=== PATIENT | female | born 1990 | race American Indian/Alaskan Native ===

== ENCOUNTER 2016-06-28 09:56 | Emergency (ER) | payer OTHER ==
[2016-06-28 10:16] VITALS: TEMP 97.7
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
[2016-06-28 11:29] LABS: RBC URINE 9 /hpf (0-3); URINE BACTERIA RARE (<OCC); URINE BILIRUBIN NEGATIVE (NEGATIVE); URINE BLOOD 3+ (NEGATIVE); URINE COLOR Yellow (YELLOW); URINE GLUCOSE (UA) NORMAL (Normal); URINE KETONE NEGATIVE (NEGATIVE); URINE LEUKOCYTE ESTERASE NEG Leu/uL (Negative); URINE PROTEIN 1+ mg/dL (NEGATIVE); URINE UROBILINOGEN NORMAL mg/dL (0.2-1.0); WBC URINE 4 /hpf (0-5)
[2016-06-28] MEDS ORDERED: cefTRIAXone (Rocephin) 250 mg Inj IM STA (12:14)
[2016-06-28 12:41] VITALS: BP 124/72; PULSE 85; RESP 18; O2SAT 98
== END 2016-06-28 12:43 | disposition home or self-care (01) ==
LOC: C.ER 09:56
DX: Z04.41 Encounter for examination and observation following alleged adult rape (principal)
CPT/HCPCS: 81001; 84703; 96372; 99285; J0696

== ENCOUNTER 2017-02-18 11:24 | Emergency (ER) | payer MEDICAID ==
[2017-02-18 11:47] VITALS: BMI 24.6
[2017-02-18 11:53] VITALS: RESP 17; O2SAT 100
--- NOTE | 2017-02-18 13:34 | C.PDOC ---
History Of Present Illness 26 y/o female presents to ED with complaints of cramping abdominal pain for 4 days worse at night. Patient is currently 10 weeks and reports pain radiates to lower back. Patient reports normal bowel movements and denies fever, chills, nausea, vomiting, vaginal bleeding, dysuria or any other complaints at this time. LMP 11/27/16 Time Seen by Provider: 02/18/17 13:24 Chief Complaint (Nursing): Abdominal Pain History Per: Patient History/Exam Limitations: no limitations Onset/Duration Of Symptoms: Days Current Symptoms Are (Timing): Still Present Location Of Pain/Discomfort: Suprapubic Past Medical History Reviewed: Historical Data, Nursing Documentation, Vital Signs Vital Signs: Last Vital Signs Temp 98 F 02/18/17 15:06 Pulse 90 02/18/17 15:06 Resp 17 02/18/17 15:06 BP 111/72 02/18/17 15:06 Pulse Ox 100 02/18/17 15:51 - Medical History PMH: No Chronic Diseases Surgical History: No Surg Hx Family History: States: No Known Family Hx - Social History Hx Alcohol Use: No (Former) Hx Substance Use: No - Immunization History Hx Tetanus Toxoid Vaccination: No Hx Influenza Vaccination: No Hx Pneumococcal Vaccination: No Review Of Systems Constitutional: Negative for: Fever, Chills Gastrointestinal: Positive for: Abdominal Pain. Negative for: Nausea, Vomiting Genitourinary: Negative for: Dysuria, Vaginal Bleeding Musculoskeletal: Positive for: Back Pain Skin: Negative for: Rash Physical Exam - Physical Exam Appears: Non-toxic, No Acute Distress Skin: Normal Color, Warm, Dry, No Rash Head: Atraumatic, Normacephalic Eye(s): bilateral: Normal Inspection Oral Mucosa: Moist Neck: Normal ROM, Supple Cardiovascular: Rhythm Regular Respiratory: Normal Breath Sounds, No Accessory Muscle Use, No Rales, No Rhonchi , No Wheezing Gastrointestinal/Abdominal: No Tenderness, No Guarding, No Rebound, Other ( Gravid abdomen) Extremity: Capillary Refill (<2 seconds) Extremity: Bilateral: Atraumatic, Normal ROM Neurological/Psych: Oriented x3 ED Course And Treatment - Laboratory Results Result Diagrams: 02/18/17 15:20 02/18/17 15:20 O2 Sat by Pulse Oximetry: 100 (RA) Pulse Ox Interpretation: Normal - CT Scan/US OB 1st Trimester Other Rad Studies (CT/US): Read By Radiologist, Radiology Report Reviewed CT/US Interpretation: PROCEDURE: OB Pelvic Ultrasound. HISTORY: patient with cramping pain. COMPARISON: None available. FINDINGS: UTERUS: There is a twin Live intrauterine gestation. [place]-rump length of fetus A is 1.07 cm, equivalent to 7 weeks 1 day. The heart rate is 137 beats per minute. The crown-rump length for fetus B is 1.36 cm equivalent to 7 weeks 4 days. The heart rate is 158 beats per minute. There is no membrane seen the 2 poles. Two separate yolk sacs are demonstrated. They measure 2 mm and 3 mm respectively for fetus a and fetus B. There is no subchorionic hemorrhage. Uterus measures 9.8 x 5.4 x 5.9 cm. No mass. CERVIX: Long and closed. No cervical abnormality seen. RIGHT OVARY: Measures 2.4 x 1.5 x 3.7 cm. No mass. Normal flow. LEFT OVARY: Measures 3.8 x 2.0 x 3.4 cm. No mass. Normal flow. FREE FLUID: None. OTHER FINDINGS: None. IMPRESSION: Twin intrauterine gestation. Monochorionic. No membrane seen the poles. heart rates as reported. age 7 weeks 1 day for fetus a and 7 weeks 4 days for fetus B. Medical Decision Making Medical Decision Making: Impression: preg patient with pain, possible ectopic Plan: Beta HCG, Blood work, UA, Tylenol ordered, Ultrasound Abdomen Progress: labs reviewed. US shows twin gestation. Discussed results with patient , and copy of report was provided. On re-examination, patient is resting comfortably in no acute distress. Patient feels comfortable going home and will be discharged. Patient given follow up instructions. Instructed to return to ER if symptoms worsen or new symptoms arise. Disposition Counseled Patient/Family Regarding: Studies Performed, Diagnosis, Need For Followup - Disposition Referrals: [facility] [Provider Group] Disposition: HOME/ ROUTINE Disposition Time: 15:51 Condition: STABLE Additional Instructions: Please follow up with your optical lab technician Take Tylenol for any pain you may have Return to the emergency department at any time if symptoms persist or worsen. 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 - Scribe Statement The provider has reviewed the documentation as recorded by the Eneidaibgentry Wayne All medical record entries made by the Royce were at my direction and personally dictated by me. I have reviewed the chart and agree that the record accurately reflects my personal performance of the history, physical exam, medical decision making, and the department course for this patient. I have also personally directed, reviewed, and agree with the discharge instructions and disposition.
--- NOTE | 2017-02-18 14:56 | US ---
PROCEDURE: OB Pelvic Ultrasound HISTORY: patient with cramping pain COMPARISON: None available. FINDINGS: UTERUS: There is a twin Live intrauterine gestation. [place]-rump length of fetus A is 1.07 cm, equivalent to 7 weeks 1 day. The heart rate is 137 beats per minute. The crown-rump length for fetus B is 1.36 cm equivalent to 7 weeks 4 days. The heart rate is 158 beats per minute. There is no membrane seen the 2 poles. Two separate yolk sacs are demonstrated. They measure 2 mm and 3 mm respectively for fetus a and fetus B. There is no subchorionic hemorrhage. Uterus measures 9.8 x 5.4 x 5.9 cm. No mass CERVIX: Long and closed. No cervical abnormality seen. RIGHT OVARY: Measures 2.4 x 1.5 x 3.7 cm. No mass. Normal flow. LEFT OVARY: Measures 3.8 x 2.0 x 3.4 cm. No mass. Normal flow. FREE FLUID: None. OTHER FINDINGS: None. IMPRESSION: Twin intrauterine gestation. Monochorionic. No membrane seen the poles. heart rates as reported. age 7 weeks 1 day for fetus a and 7 weeks 4 days for fetus B.
[2017-02-18 15:06] VITALS: BP 111/72; PULSE 90; TEMP 98
[2017-02-18 15:24] LABS: BASO # 0.1 K/uL (0.0-0.2); BASO % 0.8 % (0.0-2.0); EOS # 0.2 K/uL (0.0-0.7); EOS % 2.2 % (0.0-4.0); HEMATOCRIT 39.3 % (34.0-47.0); LYMPH % 23.8 % (20.0-40.0); MEAN CELL VOLUME 92.3 fL (81.0-99.0); MEAN CORPUSCULAR HEMOGLOBIN 31.4 pg (27.0-31.0); MEAN PLATELET VOLUME 7.8 fL (7.2-11.7); MONO # 0.7 K/uL (0.0-0.8); MONO % 8.4 % (0.0-10.0); NRBC % 0.1 % (0.0-2.0); RED CELL DISTRIBUTION WIDTH 14.2 % (11.5-14.5); WHITE BLOOD COUNT 8.3 K/uL (4.8-10.8)
[2017-02-18 15:46] LABS: RBC URINE 2 /hpf (0-3); URINE BACTERIA RARE (<OCC); URINE BILIRUBIN NEGATIVE (NEGATIVE); URINE BLOOD NEGATIVE (NEGATIVE); URINE COLOR Yellow (YELLOW); URINE GLUCOSE (UA) NORMAL (Normal); URINE KETONE NEGATIVE (NEGATIVE); URINE LEUKOCYTE ESTERASE NEG Leu/uL (Negative); URINE PROTEIN NEGATIVE (NEGATIVE); WBC URINE 1 /hpf (0-5)
[2017-02-18 15:46] LABS: ALB/GLOB RATIO 1.4 (1.0-2.1); ALKALINE PHOSPHATASE 55 U/L (38-126); ALT/SGPT 29 U/L (9-52); AST/SGOT 24 U/L (14-36); BILIRUBIN,TOTAL 0.6 mg/dL (0.2-1.3); BLOOD UREA NITROGEN 8 mg/dL (7-17); CALCIUM 8.9 mg/dl (8.6-10.4); CARBON DIOXIDE 24 mmol/L (22-30); CHLORIDE 100 mmol/L (98-107); GFR AFRICAN-AMERICAN > 60; GLUCOSE,RANDOM 81 mg/dL (65-105); POTASSIUM 3.6 mmol/L (3.6-5.2); TOTAL PROTEIN 7.2 g/dL (6.3-8.3)
[2017-02-22 10:22] LABS: SODIUM 137 mmol/L (132-148)
== END 2017-02-18 15:57 | disposition home or self-care (01) ==
LOC: C.ER 11:24
DX: O26.891 Other specified pregnancy related conditions, first trimester (principal); R10.30 Lower abdominal pain, unspecified; Z3A.01 Less than 8 weeks gestation of pregnancy

== ENCOUNTER 2017-08-05 09:46 | Emergency (ER) | payer MEDICAID, OTHER ==
[2017-08-05 10:10] VITALS: BMI 28.3
[2017-08-05] MEDS ORDERED: Lactated Ringer's 1,000 ML IV SCH (10:15)
[2017-08-05] MEDS ORDERED: Magnesium Sulfate 4 gm/100 ml 4 GM/100 ML BAG IVPB ONE (10:15)
[2017-08-05] MEDS ORDERED: Betamethasone Soluspan 30 mg/5mL Inj Susp IM SCH (10:30)
--- NOTE | 2017-08-05 10:43 | OBHP ---
Datetime: 08/05/2017 10:27 IP Adm Impression: , intrauterine ; Intact Membranes IP Chief Complaint Other: Twins @ 31 weeks. IP Admit Plan: Initiate labor protocol IP Admit Plan Other: transfer pt Admit Comment, IP Provider: 26 @ 31 weeks with twins by pts EDC presents to L_D for complain ts of contractions since 7am. Pt did not bring her records with her. Care: [facility] POBHx: Prior C/S x 1 PGYNx: pt unaware PMHx: none GBS status unknown ROS: ENT; negative, HEENT: negative, RESP: negative. SVE: , Category 1 tracing. A/P: labor, Twin . 1) Transfer to medical center. 2) IVF 3) Betamethasone x 1 4) Mag sulfate. Pelvic Type - PN: Adequate Extremities - PN: Normal Abdomen - PN: Normal Back - PN: Normal Breast - PN: Normal Lungs - PN: Normal Heart - PN: Normal Thyroid - PN: Normal Neurologic - PN: Normal HEENT - PN: Normal General - PN: Normal FHR - Baseline A Provider: 150 Comments, ACOG Physical Exam: SVE: Gestation - Est Wks by US: 31.0 Pool Provider: Negative Nitrazine Provider: Negative Vital Signs Provider: Reviewed IP Chief Complaint: Uterine contractions NICHD Variability Prov Fetus A: Moderate 6-25bpm NICHD Accel Fetus A IP Provider: [id number] FHR Category Provider Fetus A: Category I NICHD Decel Fetus A IP Provider: None Dilatation, Provider: 1 Effacement, Provider: 30 Station, Provider: -3 Genitourinary Exam: Normal DTRs - PN: Normal
[2017-08-10 18:16] VITALS: BP 106/63; PULSE 89
== END 2017-08-05 10:50 | disposition short-term general hospital (02) ==
LOC: C.EROB 09:46
DX: O47.03 False labor before 37 completed weeks of gestation, third trimester (principal); Z3A.31 31 weeks gestation of pregnancy
CPT/HCPCS: 99283; J0702